=== PATIENT | male | born 1995 | race African-American/Black ===

== ENCOUNTER 2016-07-17 01:15 | Emergency (ER) | payer MEDICAID ==
[~2016-07-17] VITALS: Ht 185.4 cm; Wt 72.6 kg
[2016-07-17] MEDS ORDERED: ACETAMINOPHEN ES 500 MG TABLET ONE (02:41)
[2016-07-17] MEDS ORDERED: IBUPROFEN 400 MG TABLET ONE (02:41)
[2016-07-17 03:00] VITALS: BP 108/42
[2016-07-17] MEDS ORDERED: ACETAMINOPHEN 325 MG TABLET PO ONE (03:00)
[2016-07-17] MEDS ORDERED: IBUPROFEN 400 MG TABLET PO ONE (03:00)
== END 2016-07-17 03:01 | disposition home or self-care (01) ==
LOC: ER 01:18
DX: S16.1XXA Strain of muscle, fascia and tendon at neck level, initial encounter (principal); J45.909 Unspecified asthma, uncomplicated; V43.62XA Car passenger injured in collision with other type car in traffic accident, initial encounter; Y93.89 Activity, other specified; Y92.89 Other specified places as the place of occurrence of the external cause; Y99.9 Unspecified external cause status
CPT/HCPCS: 99283; A4606; Z7610